=== PATIENT | male | born 1990 | race Caucasian/White ===

== ENCOUNTER → 2020-08-28 10:37 | Outpatient (BNVA) | payer BC, SELFPAY | PROVIDERS: Family Provider Family Medicine; PCP Family Medicine; Visit Provider Nurse Practitioner | DX: M25.562 Pain in left knee (principal); M79.89 Other specified soft tissue disorders | CPT/HCPCS: 73562 ==

== ENCOUNTER 2020-08-28 11:05 | Outpatient (CLI) | payer BC, SELFPAY ==
[2020-08-28 11:17] LABS: Basophils % 0.2 %; Eosinophils % 0.3 %; Hematocrit 41.2 % (42.0-52.0); Hemoglobin 13.5 g/dL (11.7-16.6); Lymphocytes # 1.2 10^3/uL (0.8-4.8); Lymphocytes % 12.1 %; Mean Corpuscular HGB Conc 32.8 g/dL (30.0-36.0); Mean Corpuscular Volume 85.3 fL (80-94); Mean Platelet Volume 9.8 fL (7.4-10.4); Monocytes # 0.8 10^3/uL (0.2-0.9); Monocytes % 8.2 %; Neutrophils # 7.55 10^3/uL (1.8-7.7); Nucleated Red Blood Cells % 0 %; Platelet Count 215 10^3/cmm (130-400); Red Blood Count 4.83 10^6/uL (4.1-5.3); White Blood Count 9.6 10^3/uL (4.0-10.0)
== END 2020-08-28 11:06 | disposition home or self-care (01) ==
PROVIDERS: PCP Family Medicine; Visit Provider Nurse Practitioner
DX: R50.9 Fever, unspecified (principal)
CPT/HCPCS: 85025

== ENCOUNTER 2022-01-27 17:16 | Emergency (ER) | payer BC, SELFPAY ==
[2022-01-27 17:22] VITALS: BP 141/103; PULSE 106; RESP 20; TEMP 36.9; O2SAT 99
--- NOTE | 2022-01-27 17:25 | ED.C_ITS ---
HPI - Psych General: Chief Complaint: Psychiatric Symptoms Stated Complaint: Psych Eval Time Seen by Provider: 01/27/22 17:25 History of Present Illness: 31-year-old male presenting with reported anger and suicidal statements. Patient reports being frustrated by current life stressors but denies current suicidal or homicidal ideation. Otherwise denies medical complaints. Onset (ago): hour(s) Context: significant life stressor Review of Systems General: Reports: 10 or more systems reviewed and unremarkable except in HPI and below PFSH ED PFSH: Medical History (Updated 02/01/22 @ 15:58 by Nola Pacheco) Anxiety Depression Psychiatric care Social History Smoking and tobacco status: never smoked Physical Exam Const: COMMON NORMALS: alert GENERAL APPEARANCE: cooperative and well developed HENMT: COMMON NORMALS: normocephalic and atraumatic HEAD & SCALP: normocephalic and atraumatic Eye: COMMON NORMALS: conjunctivae normal CONJUNCTIVA: Yes conjunctivae normal SCLERA: sclerae normal Neck/C-Spine: COMMON NORMALS: supple GENERAL: Yes trachea midline Resp: COMMON NORMALS: clear to auscultation bilaterally EFFORT & INSPECTION: Yes able to speak in complete sentences AUSCULTATION: clear to auscultation bilaterally Cardio: COMMON NORMALS: regular rate and regular rhythm RATE: regular rate RHYTHM: regular rhythm GI: COMMON NORMALS: Soft to palpation PALPATION: Yes Soft to palpation and No Tenderness to palpation present (GI) Extremity: GENERAL: Yes normal exam except as noted and No edema Neuro: COMMON NORMALS: moves all extremities SENSORIUM/ORIENTATION: Yes alert and No Orientation impaired Psych: COMMON NORMALS: mental status grossly normal and Normal thought process present ATTITUDE: Yes Guarded attititude/behavior present and Yes agitated THOUGHT PROCESS: Normal thought process present THOUGHT CONTENT: No Suicidality present and No Homicidality present Course Vital Signs: Vital signs: Vital Signs Temperature 98.4 F 01/27/22 17:22 Pulse Rate 106 H 01/27/22 17:22 Respiratory Rate 20 H 01/27/22 17:22 Blood Pressure 141/103 01/27/22 17:22 Pulse Oximetry 99 01/27/22 17:22 Oxygen Delivery Me thod 01/27/22 17:22 MDM - Psych Medical Decision Making 31-year-old gentleman presenting due to reported suicidal statements. Patient reports that he was just frustrated and has no intention to kill himself or others or otherwise harm himself or others. Evaluated by psychiatry service and satisfactory for outpatient management with strict return precautions and follow-up plan given. Discussed with patient's separate from patient who is comfortable with plan. Plan to change the combination and secure all firearms in a safe. Medical Records I reviewed the patient's medical records. Lab Data I reviewed the patient's lab results. : 01/27/22 18:20 01/27/22 18:20 Laboratory Results WBC 7.5 10^3/uL (4.0-10.0) 01/27/22 18:20 RBC 5.24 10^6/uL (4.1-5.3) 01/27/22 18:20 Hgb 14.7 g/dL (11.7-16.6) 01/27/22 18:20 Hct 44.9 % (42.0-52.0) 01/27/22 18:20 MCV 85.7 fl (80-94) 01/27/22 18:20 MCH 28.1 pg (28.0-34.0) 01/27/22 18:20 MCHC 32.7 g/dL (30.0-36.0) 01/27/22 18:20 RDW 12.7 % (12.1-15.1) 01/27/22 18:20 Plt Count 286 10^3/cmm (130-400) 01/27/22 18:20 MPV 9.7 fL (7.4-10.4) 01/27/22 18:20 Neut % (Auto) 59.9 % 01/27/22 18:20 Lymph % (Auto) 27.0 % 01/27/22 18:20 Cavalier % (Auto) 11.2 % 01/27/22 18:20 Eos % (Auto) 1.5 % 01/27/22 18:20 Baso % (Auto) 0.1 % 01/27/22 18:20 Neut # (Auto) 4.47 10^3/uL (1.8-7.7) 01/27/22 18:20 Lymph # (Auto) 2.0 10^3/uL (0.8-4.8) 01/27/22 18:20 Cavalier # (Auto) 0.8 10^3/uL (0.2-0.9) 01/27/22 18:20 Eos # (Auto) 0.1 10^3/uL (0.0-0.8) 01/27/22 18:20 Baso # (Auto) 0.0 10^3/uL (0.0-0.1) 01/27/22 18:20 Nucleated RBC % (auto) 0 % 01/27/22 18:20 Nucleated RBCs # 0.0 /100WBC 01/27/22 18:20 Sodium 134 mmol/L (136-145) L 01/27/22 18:20 Potassium 3.9 mmol/L (3.5-5.1) 01/27/22 18:20 Chloride 101 mmol/L (98-107) 01/27/22 18:20 Carbon Dioxide 25 mmol/L (22-29) 01/27/22 18:20 Anion Gap 11.9 (5-19) 01/27/22 18:20 BUN 15 mg/dL (6-20) 01/27/22 18:20 Creatinine 1.0 mg/dL (0.7-1.2) 01/27/22 18:20 GFR Calculation 86.1 mL/min (90-130) L 01/27/22 18:20 Glucose 84 mg/dL (65-115) 01/27/22 18:20 Calculated Osmolality 278 mOsm/kg (285-295) L 01/27/22 18:20 Calcium 9.5 mg/dL (8.5-10.5) 01/27/22 18:20 Total Bilirubin 0.4 mg/dL (0.15-1.2) 01/27/22 18:20 AST 25 U/L (0-40) 01/27/22 18:20 ALT 42 U/L (0-41) H 01/27/22 18:20 Alkaline Phosphatase 86 U/L (40-130) 01/27/22 18:20 Total Protein 7.8 g/dL (6.6-8.7) 01/27/22 18:20 Albumin 4.0 g/dL (3.5-5.2) 01/27/22 18:20 Globulin 3.8 g/dL (1.3-4.6) 01/27/22 18:20 TSH 0.43 uIU/mL (0.27-4.20) 01/27/22 18:20 Salicylates < 0.3 mg/dL (3-10) L 01/27/22 18:20 Urine Opiates Screen Negative ng/mL (Negative) 01/27/22 18:27 Acetaminophen < 5.0 ug/mL (10-30) L 01/27/22 18:20 Ur Barbiturates Screen Negative ng/mL (Negative) 01/27/22 18:27 Ur Phencyclidine Scrn Negative ng/mL (Negative) 01/27/22 18:27 Ur Amphetamines Screen Negative ng/mL (Negative) 01/27/22 18:27 U Benzodiazepines Scrn Positive ng/mL (Negative) H 01/27/22 18:27 Urine Cocaine Screen Negative ng/mL (Negative) 01/27/22 18:27 U Marijuana (THC) Screen Negative ng/mL (Negative) 01/27/22 18:27 Ethyl Alcohol < 10 mg/dL (0-10) 01/27/22 18:20 Discharge Plan Discharge Patient Disposition: Home Clinical Impression: Depression, Anxiety Condition: Stable Prescriptions: No Action bupropion HCl [Wellbutrin SR] 150 mg tablet sustained-release 12 hr 150 mg PO DAILY Qty: 30 12RF quetiapine [Seroquel] 100 mg tablet 100 mg PO BID Qty: 60 11RF olanzapine [Zyprexa] 5 mg tablet 5 mg PO BID PRN (Reason: agitation) Qty: 60 11RF Discharge Orders: Discharge ED (Routine); Ordered 01/27/22 Ordered By: Nate Bell Referrals: Dariusz Boykin MD [Primary Care Provider] - Discharge Diet: Usual diet Discharge Activity: Increase activity as tolerated Activity Restrictions/Additional Instructions: Thank you for visiting the emergency department. You are seen evaluated for depression and suicidal statements. After ED evaluation and evaluation by psychiatry we recommend close outpatient follow-up as you do not wish to pursue inpatient psychiatric management. Return to the emergency department immediately for thoughts of harming yourself or others, or anything else that you are concerned about a feel needs emergency department evaluation. Please follow-up with a primary care provider. Please follow-up with behavioral health on Saturday. [facility] [phone] If you or someone you care for is experiencing a psychiatric emergency, please call the crisis hotline ([facility]) 24-hours a day, 7 days a week at [phone]. Coding Level of Care Code ED Patient Financial Services Coordinator for Ko Meraz
[2022-01-27 18:44] LABS: Basophils % 0.1 %; Eosinophils # 0.1 10^3/uL (0.0-0.8); Eosinophils % 1.5 %; Hematocrit 44.9 % (42.0-52.0); Hemoglobin 14.7 g/dL (11.7-16.6); Mean Corpuscular HGB Conc 32.7 g/dL (30.0-36.0); Mean Corpuscular Hemoglobin 28.1 pg (28.0-34.0); Mean Corpuscular Volume 85.7 fl (80-94); Mean Platelet Volume 9.7 fL (7.4-10.4); Monocytes # 0.8 10^3/uL (0.2-0.9); Monocytes % 11.2 %; Neutrophils # 4.47 10^3/uL (1.8-7.7); Neutrophils % 59.9 %; Nucleated Red Blood Cells % 0 %; Platelet Count 286 10^3/cmm (130-400); Red Blood Count 5.24 10^6/uL (4.1-5.3); Red Cell Distribution Width 12.7 % (12.1-15.1); White Blood Count 7.5 10^3/uL (4.0-10.0)
[2022-01-27 18:49] LABS: Amphetamines Screen Urine Negative (Negative); Barbiturates Screen Urine Negative (Negative); Benzodiazepines Screen Urine Positive (Negative); Cocaine Screen Urine Negative (Negative); Opiate Screen Urine Negative (Negative); PCP Screen Urine Negative (Negative); THC Screen Urine Negative (Negative)
[2022-01-27 19:16] LABS: Alanine Aminotransferase 42 U/L (0-41); Alkaline Phosphatase 86 U/L (40-130); Anion Gap 11.9 (5-19); Aspartate Amino Transferase 25 U/L (0-40); Blood Urea Nitrogen 15 mg/dL (6-20); Calcium 9.5 mg/dL (8.5-10.5); Carbon Dioxide 25 mmol/L (22-29); Chloride 101 mmol/L (98-107); Globulin 3.8 g/dL (1.3-4.6); Glomerular Filtration Rate 86.1 mL/min (90-130); Glucose 84 mg/dL (65-115); Osmolality Calculated 278 mOsm/kg (285-295); Potassium 3.9 mmol/L (3.5-5.1); Sodium 134 mmol/L (136-145); Thyroid Stimulating Hormone 0.43 uIU/mL (0.27-4.20); Total Bilirubin 0.4 mg/dL (0.15-1.2); Total Protein 7.8 g/dL (6.6-8.7)
[2022-01-27 19:32] LABS: Acetaminophen < 5.0 ug/mL (10-30); Alcohol Level < 10 mg/dL (0-10); Salicylate < 0.3 mg/dL (3-10)
== END 2022-01-27 21:03 | disposition home or self-care (01) ==
PROVIDERS: Emergency Provider Emergency Medicine; PCP Family Medicine
DX: F32.A Depression, unspecified (principal); F41.9 Anxiety disorder, unspecified
CPT/HCPCS: 80053; 80306; 80307; 84443; 85025; 99283

== ENCOUNTER 2022-02-23 15:28 | Emergency (ER) | payer BC, SELFPAY ==
[2022-02-23 15:30] VITALS: BP 147/90; PULSE 91; RESP 16; TEMP 36.7; O2SAT 100
--- NOTE | 2022-02-23 15:40 | XRR_ITS ---
PROCEDURE INFORMATION: Exam: XR Left Finger(s) Exam date and time: 02/23/2022 3:47 PM Age: 31 years old Clinical indication: Injury or trauma; Other: Laceration; Left; Ring finger; Additional info: Ring finger, laceration TECHNIQUE: Imaging protocol: Radiologic exam of the Left fingers. Views: Minimum 2 views. COMPARISON: No relevant prior studies available. FINDINGS: Bones/joints: Osseous structures are intact. Negative for fracture. Joint spaces are preserved. Soft tissues: Normal. XR/XR finger LT min 2V [id number] IMPRESSION: No acute findings.
--- NOTE | 2022-02-23 16:45 | ED_ITS ---
HPI - Wound/Laceration General: Chief Complaint: Wound/Laceration Stated Complaint: left finger lac Time Seen by Provider: 02/23/22 16:35 Source: patient Mode of arrival: ambulatory Limitations: no limitations History of Present Illness: 31-year-old male states that he was using a band saw struck his left finger on it I did avulsed his nail and he has a 1 similar laceration to the nailbed. He is well-appearing here no other injuries noted rates his pain a 5 out of 10. Associated symptoms: Denies chills, fever(s), nausea or vomiting Review of Systems Const: Denies: fever(s), chills, body aches or change in appetite Eyes: Denies: blurry vision or eye discomfort ENMT: Denies: throat pain or dental pain Card: Denies: chest pain Resp: Denies: dyspnea GI: Denies: abdominal pain, nausea, vomiting or diarrhea : Denies: dysuria Musc: Reports: extremity pain Skin/Breast: Denies: rash Neuro: Denies: headache(s) Psych: Denies: depression Julian/Lymph: Denies: easy bruising All/Imm: Denies: urticaria PFSH ED PFSH: Medical History Anxiety Depression Psychiatric care Social History Smoking and tobacco status: never smoked Physical Exam Const: COMMON NORMALS: no acute distress, patient oriented x3 and healthy appearing HENMT: COMMON NORMALS: normocephalic and atraumatic HEAD & SCALP: normocephalic and atraumatic Eye: COMMON NORMALS: conjunctivae normal CONJUNCTIVA: Yes conjunctivae no rmal Neck/C-Spine: COMMON NORMALS: full ROM and supple Chest: COMMONS NORMALS: normal inspection of the chest and normal palpation of entire chest wall Resp: COMMON NORMALS: normal respiratory effort, No retractions, No use of accessory muscles and clear to auscultation bilaterally AUSCULTATION: clear to auscultation bilaterally Cardio: COMMON NORMALS: regular rate, regular rhythm and No murmurs present (Cardio) RATE: regular rate RHYTHM: regular rhythm GI: INSPECTION: Yes normal to inspection Extremity: NARRATIVE EXTREMITY EXAM: Nail avulsion to left ring finger nail with a 1 cm laceration to the nailbed Neuro: COMMON NORMALS: patient oriented x3, moves all extremities and no focal motor deficits Psych: COMMON NORMALS: mental status grossly normal, Normal thought process present and cooperative THOUGHT PROCESS: Normal thought process present Skin: COMMON NORMALS: no rashes or lesions noted and no wounds GENERAL SKIN EXAM: no rashes or lesions noted Procedures Laceration Laceration 1: Site: hand Side (If applicable): left Size (cm): 2 Description: linear Depth: simple, single layer Local Anesthetic: bupivacaine 0.5% Amount of anesthesia used (mL): 10 Pre-repair: wound explored and irrigated extensively Skin layer closed with: vicryl Size (cm): 5-0 Number of sutures: 4 Technique: simple, interrupted Course Vital Signs: Vital signs: Vital Signs Temperature 98.0 F 02/23/22 15:30 Pulse Rate 91 02/23/22 15:30 Respiratory Rate 16 02/23/22 15:30 Blood Pressure 147/90 02/23/22 15:30 Pulse Oximetry 100 02/23/22 15:30 Oxygen Delivery Me thod 02/23/22 15:30 MDM - Wound/Laceration Medical Decision Making Patient presents here with a nailbed laceration he does have a nail avulsion as well. The laceration was repaired with his removal sorters he is to follow-up with PCP and return if worsening. Lab Data Radiology Impressions Finger X-Ray 02/23/22 15:40 IMPRESSION: No acute findings. Discharge Plan Discharge Patient Disposition: Home Clinical Impression: Laceration Condition: Stable Prescriptions: New hydrocodone-acetaminophen 5-325 mg tablet 1 tab PO Q6H PRN (Reason: pain) Qty: 14 0RF No Action bupropion HCl [Wellbutrin SR] 150 mg tablet sustained-release 12 hr 150 mg PO DAILY Qty: 30 12RF quetiapine [Seroquel] 100 mg tablet 100 mg PO BID Qty: 60 11RF olanzapine [Zyprexa] 5 mg tablet 5 mg PO BID PRN (Reason: agitation) Qty: 60 11RF Discharge Orders: Discharge ED (Routine); Ordered 02/23/22 Ordered By: Dhaval Bah Referrals: Dariusz Boykin MD [Primary Care Provider] - 1-3 days Discharge Diet: Advance as tolerated Discharge Activity: Resume usual activity Patient Instructions: Finger Laceration (ED), Care For Your Absorbable Stitches (ED) Coding Level of Care Code ED Other Wood Processing Machine Operator for Ko Fwkanika Exam Comprehensive
== END 2022-02-23 17:43 | disposition home or self-care (01) ==
PROVIDERS: Emergency Provider Emergency Medicine; PCP Family Medicine
DX: S61.315A Laceration without foreign body of left ring finger with damage to nail, initial encounter (principal); W27.0XXA Contact with workbench tool, initial encounter
CPT/HCPCS: 12001; 73140; 99283; J3490

== ENCOUNTER → 2022-04-20 09:26 | Outpatient (BNVA) | payer BC, SELFPAY | PROVIDERS: PCP Family Medicine; Visit Provider Psychiatry & Neurology Psychiatry | DX: F31.81 Bipolar II disorder (principal) | CPT/HCPCS: 80053; 80061; 83036; 84443 ==

== ENCOUNTER → 2022-05-17 08:18 | Outpatient (BNVA) | payer BC, SELFPAY | PROVIDERS: PCP Family Medicine; Visit Provider Family Medicine | DX: R56.9 Unspecified convulsions (principal); F32.A Depression, unspecified | CPT/HCPCS: 80053; 82607; 83735; 84443; 85025; 85651 ==

== ENCOUNTER 2022-08-14 06:44 | Outpatient (CLI) | payer BC, SELFPAY ==
--- NOTE | 2022-08-14 07:30 | CT_ITS ---
WS: [id number] CT HEAD WITH AND WITHOUT CONTRAST HISTORY: convulsions TECHNIQUE: Noncontrast 2.5 mm axial images obtained from the vertex to the skull base. Additional rosemarie ging performed at 2.5 mm axial images status post IV contrast. Bone and soft tissue windows are revie wed. All CT scans at [facility] use at least one of these dose optimization techniques: autom ated exposure control; mA and/or kV adjustment per patient size (includes targeted exams where dose i s matched to clinical indication); or iterative reconstruction. CONTRAST: Omnipaque 350; 100 mL IV. DLP: 2140.54 mGy.cm COMPARISON: None available. No acute intracranial hemorrhage, edema or midline shift. No significant atrophy. No nodules lining t he ependyma. Ko-white matter differentiation remains intact. No enhancing mass or vascular malformations identified. Dural venous sinuses are normally enhancing. Visualized [place] is unremarkable. Absent distal LEFT vertebral artery may be normal varian t for this dictation. Dominant RIGHT vertebral artery. Paranasal sinuses as visualized: Clear. Mastoid air cells: Clear. Calvarium and scalp: Intact. CT/CT head wo/w con [id number] IMPRESSION: 1. Normal noncontrast head CT. No mass or hemorrhage. 2. Normal postcontrast imaging. No mass or vascular malformations. 3. No significant sinus disease. 4. No ventriculomegaly.
[2022-08-14] MEDS: iohexol 350 mg/mL 500 mL Btl (per mL) IV (07:41)
== END 2022-08-14 06:45 | disposition home or self-care (01) ==
LOC: RAD 06:47
PROVIDERS: PCP Family Medicine; Visit Provider Family Medicine
DX: R56.9 Unspecified convulsions (principal)
CPT/HCPCS: 70470; Q9967

== ENCOUNTER 2022-11-08 06:18 | Outpatient (CLI) | payer BC, SELFPAY ==
--- NOTE | 2022-11-08 06:30 | USCV_ITS ---
Zurdo Hager Age: 32 Gender: M : 1990 Exam Date: 11/08/2022 06:36 Ordering Phys: Danyelle Cerrato MD ([email or web address]) Technologist: BESSIE [place] [facility] [place]: [id number] BP: 127 / 85 HR: 73 Rhythm: Sinus Technical Quality: Adequate MEASUREMENTS (Male / Female) Normal Values 2D ECHO LVOT Diameter 2.0 cm LV Ejection Fraction MOD 2C 65.3 % LV Ejection Fraction 2C AL 66.2 % LA Diameter 3.3 cm LA Width 3.4 cm LA Height 4.0 cm RA Width 3.3 cm RA Height 5.0 cm Aorta at Sinotubular Diameter 2.8 cm IVC Diameter 1.6 cm M-MODE Aortic Annulus Diameter 3.4 cm LA Ao Ratio MM 0.9 MV E Point Septal Separation 0.6 cm DOPPLER AV Peak Velocity 126.0 cm/s LVOT Peak Velocity 123.0 cm/s AV Area Cont Eq vti 3.2 cm squared AV Area Cont Eq pk 3.1 cm squared MV Peak Velocity 80.0 cm/s MV Area PHT 4.5 cm squared Mitral E to A Ratio 1.7 MV E' Velocity 58.0 cm/s Mitral E to MV E' Ratio 7.2 Mitral E to LV E' Lateral Ratio 7.2 Mitral E to LV E' Septal Ratio 7.1 TR Peak Velocity 161.6 cm/s TR Peak Gradient 10.4 mmHg TR Mean Velocity 132.0 cm/s TR Mean Gradient 7.2 mmHg TR Velocity Time Integral 41.8 cm TV Peak E Velocity 52.0 cm/s Right Atrial Pressure 3.0 mmHg Pulmonary Artery Systolic Pressu 13.4 mmHg PV Peak Velocity 119.0 cm/s RV Acceleration Time 0.2 s RV Ejection Time 0.3 s RV AcT/ET 0.5 FINDINGS Left Ventricle Normal left ventricular size and systolic function, EF 62 %. No regional wall motion abnormalities. Right Ventricle The right ventricle is normal in size and function. Right Atrium The right atrium is normal in size. Left Atrium The left atrium is normal in size. Mitral Valve No gross abnormalities noted . Aortic Valve No gross abnormalities noted Tricuspid Valve No gross abnormalities noted Pulmonic Valve No gross abnormalities noted Pericardium Normal pericardium without effusion. Aorta Normal ascending aorta dimension. IVC The inferior vena cava appears normal. CONCLUSIONS Normal left ventricular size and systolic function, EF 62 %. No regional wall motion abnormalities. Normal cardiac chamber sizes No gross valvular abnormalities There is no pericardial effusion. There are no intracardiac masses. No similar previous studies are available for comparison Dr Danyelle Cerrato MD [facility] (Electronically Signed) Final Date: 09 November 2022 07:44 S
[2022-11-08 07:22] LABS: 25 Hydroxy Vitamin D 24 ng/mL (30-100)
== END 2022-11-08 06:19 | disposition home or self-care (01) ==
PROVIDERS: PCP Family Medicine; Referring Provider Psychiatry & Neurology Neurology; Visit Provider Internal Medicine Cardiovascular Disease
DX: R06.09 Other forms of dyspnea (principal); R56.9 Unspecified convulsions
CPT/HCPCS: 36415; 82306; 93306